=== PATIENT | female | born 1995 | race Two or more races ===

== ENCOUNTER 2021-01-04 18:24 | Emergency (ER) | payer MEDICAID, OTHER ==
[~2021-01-04] VITALS: Ht 167.6 cm; Wt 61.2 kg
[2021-01-04 18:38] VITALS: BP 107/67
[2021-01-04 20:04] LABS: Urine Bacteria NONE SEEN /hpf (None Seen); Urine Blood Negative /uL (Negative); Urine Specific Gravity 1.024 (1.001-1.035); Urine WBC 66 /hpf (0 - 5)
== END 2021-01-04 23:49 | disposition left against medical advice (07) ==
LOC: ER 18:24
DX: O46.91 Antepartum hemorrhage, unspecified, first trimester (principal); Z53.21 Procedure and treatment not carried out due to patient leaving prior to being seen by health care provider; Z3A.00 Weeks of gestation of pregnancy not specified
CPT/HCPCS: 81001; 81025